=== PATIENT | male | born 1995 | race Caucasian/White ===

== ENCOUNTER 2019-10-23 18:22 | Emergency (ER) | payer OTHER ==
[~2019-10-23] VITALS: Ht 177.8 cm; Wt 68.0 kg
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
--- NOTE | 2019-10-23 18:34 | NUR ---
Dr Gutierrez at bedside
[2019-10-23] MEDS ORDERED: AMOX/CLAVULANATE 875 MG TABLET ONE (18:46)
[2019-10-23] MEDS ORDERED: IBUPROFEN 400 MG TABLET ONE (18:46)
[2019-10-23] MEDS ORDERED: ACETAMINOPHEN ES 500 MG TABLET ONE (18:46)
--- NOTE | 2019-10-23 18:55 | NUR ---
wound care done
--- NOTE | 2019-10-23 18:58 | NUR ---
Patient discharged in custody of Officer Khari #[id number] [facility] in stable condition. Written and verbal after care instructions given. Patient and officer verbalizes understanding of instruction.
[2019-10-23 19:00] VITALS: BP 139/70
[2019-10-23] MEDS ORDERED: AMOX/CLAVULANATE 875 MG TABLET PO ONE (19:00)
[2019-10-23] MEDS ORDERED: IBUPROFEN 400 MG TABLET PO ONE (19:00)
[2019-10-23] MEDS ORDERED: ACETAMINOPHEN ES 500 MG TABLET PO ONE (19:00)
== END 2019-10-23 19:09 | disposition home or self-care (01) ==
LOC: ER 18:26
DX: S50.12XA Contusion of left forearm, initial encounter (principal); S50.811A Abrasion of right forearm, initial encounter; S80.811A Abrasion, right lower leg, initial encounter; W54.0XXA Bitten by dog, initial encounter; Y93.89 Activity, other specified; Y92.89 Other specified places as the place of occurrence of the external cause; Y99.8 Other external cause status